=== PATIENT | male | born 1970 | race Asian ===

== ENCOUNTER 2016-09-07 18:50 | Emergency (ER) | payer OTHER ==
[~2016-09-07] VITALS: Ht 177.8 cm; Wt 93.9 kg
[~2016-09-07 18:50] MED LIST: ONDA4TAB5; TRAM50TA2
[2016-09-07 19:00] VITALS: BP 164/115
[2016-09-07] MEDS ORDERED: HYDROCODONE/APAP 5/325MG 1 EACH TABLET ONE (19:19)
[2016-09-07] MEDS: HYDROCODONE/APAP 5/325MG 1 EACH TABLET PO ONE (19:25)
== END 2016-09-07 19:27 | disposition home or self-care (01) ==
LOC: ER 18:54
DX: M25.562 Pain in left knee (principal); G89.29 Other chronic pain; F17.200 Nicotine dependence, unspecified, uncomplicated; I10 Essential (primary) hypertension
CPT/HCPCS: 29505; 99283; A4606; Z7610

== ENCOUNTER 2024-03-22 10:34 | Emergency (ER) | payer BC, OTHER ==
[~2024-03-22] VITALS: Ht 175.3 cm; Wt 95.3 kg
[2024-03-22] MEDS: ACETAMINOPHEN 325 MG TABLET PO ONE (12:00)
[2024-03-22] MEDS ORDERED: ACETAMINOPHEN 325 MG TABLET ONE (12:57)
[2024-03-22 13:58] VITALS: BP 179/77; TEMP 98.3; O2SAT 99
== END 2024-03-22 13:58 | disposition home or self-care (01) ==
LOC: ER 10:39
DX: S01.111A Laceration without foreign body of right eyelid and periocular area, initial encounter (principal); S09.90XA Unspecified injury of head, initial encounter; G89.29 Other chronic pain; F17.200 Nicotine dependence, unspecified, uncomplicated; I10 Essential (primary) hypertension; W18.39XA Other fall on same level, initial encounter; Y93.89 Activity, other specified; Y92.091 Bathroom in other non-institutional residence as the place of occurrence of the external cause; Y99.8 Other external cause status
CPT/HCPCS: 70450-TC